=== PATIENT | female | born 1985 | race Caucasian/White ===

== ENCOUNTER 2018-04-23 08:30 | Inpatient (IN) | payer OTHER ==
[~2018-04-23] VITALS: Ht 157.5 cm; Wt 68.0 kg
[~2018-04-23 08:30] MED LIST: LIORESAL 10MG T10 MG PO; POLYTRIM EYE DR10 ML OPH; TRAMADOL50 MG PO
[2018-04-23] MEDS ORDERED: PRENATAL TABLE1 EAC2 PO (08:55)
[2018-04-23 08:59] LABS: ABSOLUTE BASOPHIL COUNT 0 /CUMM (0.0-0.2); ABSOLUTE EOSINOPHIL COUNT 0.1 /CUMM (0.0-0.7); ABSOLUTE GRANULOCYTE CT 7.2 /CUMM (1.4-6.5); ABSOLUTE LYMPH COUNT 1.8 /CUMM (1.2-3.4); ABSOLUTE MONOCYTE COUNT 0.4 /CUMM (0.10-0.60); BASOPHIL % 0.3 % (0.0-2.0); EOSINOPHIL % 0.7 % (0-5); GRANULOCYTE % 76.3 % (42.2-75.2); HEMATOCRIT 38.7 % (37-47); MEAN CORPUSCULAR HGB 31.4 PG (27.0-31.0); MEAN CORPUSCULAR VOLUME 92.4 FL (81.0-99.0); MEAN PLATELET VOLUME 9.6 FL (7.4-10.4); PLATELET COUNT 189 /CUMM (130-400); RBC DISTRIBUTION WIDTH 13.5 % (11.5-14.5); RED BLOOD CELL CT 4.19 /CUMM (4.20-5.40); WHITE BLOOD CELL COUNT 9.5 /CUMM (4.8-10.8)
--- NOTE | 2018-04-23 09:25 | History & Physical ---
General Information and HPI MD Statement: I have seen and personally examined RODRIGUEZ SAMUELS and documented this H&P. Source of Information: patient, old records Exam Limitations: no limitations History of Present Illness: The patient is a 33 year old at 41 weeks and 0 days gestation who presented with a chief complaint of IOL for pedc. No ctx / lof / vb. +FM. GBS neg. AP care uncomplicated. Elevated GCT, nl GTT. 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 No Contractions: rare Infant #1 - FHR Baseline: 130 Category: 1 Estimated Weight: 3400 Presentation: vtx Patient for Induction? Yes Patrick Score Patrick Score Response Value Cervix Position: mid-position 1 Cervix Consistency: soft 2 Cervix Effacement: 30-50% 1 Cervix Dilation: 3-4 cm 2 Cervix Station: -2 1 Total 7 Physical Exam: nad abd soft nt gravid ext nt no ed Labs Blood Type & Rh: AB pos Antibody Screen: neg Hct/Hgb & Platelets #1: 12.5/ 39, 194 Hct/Hgb & Platelets #2: 12.5/ 40.7, 172 Rubella: imm VDRL #1: neg VDRL #2: neg HbsAg: neg HIV #1: neg HIV #2 neg 1 Hr P 3 Hr P/ 107/ 85/ 77 Group B Strep: neg Initial Ultrasound: 08/31/17siup 7+3 Anatomy Ultrasound: 12/06/17 nl manish Ultrasound for EFW: 03/26 36+5 5#15 22% Genetic Testing: cffdna wnl XX msafp wnl CF neg hgb AA Last 24 Hrs of Labs/Rich: Laboratory Tests 04/23/18 0847: CBC w Diff NO MAN DIFF REQ, RBC 4.19 L, MCV 92.4, MCH 31.4 H, MCHC 34.0, RDW 13.5, MPV 9.6, Gran % 76.3 H, Lymphocytes % 18.6 L, Monocytes % 4.1, Eosinophils % 0.7, Basophils % 0.3, Absolute Granulocytes 7.2 H, Absolute Lymphocytes 1.8, Absolute Monocytes 0.4, Absolute Eosinophils 0.1, Absolute Basophils 0 04/23/18 0840: Urine Color YEL, Urine Clarity CLEAR, Urine pH 6.5, Ur Specific Miranda 1.020, Urine Protein NEG, Urine Ketones NEG, Urine Nitrite NEG, Urine Bilirubin NEG, Urine Urobilinogen 0.2, Ur Leukocyte Esterase NEG, Ur Microscopic EXAM NOT REQUIRED, Urine Hemoglobin NEG, Urine Glucose NEG Assessment/Plan Assessment/Plan: 33yo @ 41wks for pedc IOL, GBS neg, and maternal status reassuring -Admit -pitocin -monitoring -ANSVD As Ranked By This Provider Problem List: 1. Core Measures Venous Thromboembolism VTE Risk Factors / No Mechanical VTE Prophylaxis d/t Early Ambulation No VTE Pharm Prophylaxis d/t LowRisk-No Interven Req'd
--- NOTE | 2018-04-23 11:20 | PN- OBGYN ---
Surgical Brief Attending Note Brief Attending Note: pt w/ mild ctx afeb, v/ss fht 130s mod variability +acc no dec toco q 1-5 pit@ 8mu sve 3/70/-2, arom clr a/p p0 41wks pedc iol, on pit, gbs neg, s/p arom, and maternal status reassuring -cont current mgmt
--- NOTE | 2018-04-23 17:07 | Labor & Delivery Summary ---
Delivery Summary Vaginal Delivery: Vaginal: spontaneous Episiotomy/Lacerations: Episiotomy/Lacerations: 2nd deg, b/l labial Type: vaginal and perineal Repair: 3-0 daphne Anesthesia: epidural Placenta: Placenta: spontanteous, normal, 3 vessel Anesthesia: block Baby's Weight: 3165gr Apgars - 1 Min: 9 Apgars - 5 Min: 9 Additional Comments: Pt FD / +2 and pushing w/ epidural. Controlled of live female, apg 05/13, wt 7#. Head del over perineum from PATRICE. Mouth and nose bulb suctioned. Body del w/o difficulty. Baby to mom's chest. Cord clamped and cut. Cord gases sent. 3vc plac del spont intact. Fundus contracted. Vaginal, labial and perineal lacs repaired usual fashion 3-0 daphne. Good hemostasis. Left vaginal wall 3cm x 2cm sized hematoma noted and remained stable in size for 20 min. Pt radhika well. Baby w/ mom. EBL 400cc.
[2018-04-23 17:44] VITALS: BP 106/69
[2018-04-24 08:14] LABS: ABSOLUTE BASOPHIL COUNT 0 /CUMM (0.0-0.2); ABSOLUTE EOSINOPHIL COUNT 0 /CUMM (0.0-0.7); ABSOLUTE GRANULOCYTE CT 10.7 /CUMM (1.4-6.5); ABSOLUTE LYMPH COUNT 1.3 /CUMM (1.2-3.4); ABSOLUTE MONOCYTE COUNT 0.4 /CUMM (0.10-0.60); BASOPHIL % 0.1 % (0.0-2.0); EOSINOPHIL % 0.3 % (0-5); GRANULOCYTE % 85.3 % (42.2-75.2); HEMATOCRIT 37.2 % (37-47); MEAN CORPUSCULAR HGB 31.6 PG (27.0-31.0); MEAN CORPUSCULAR HGB CONC 33.6 G/DL (33.0-37.0); MEAN CORPUSCULAR VOLUME 93.8 FL (81.0-99.0); MEAN PLATELET VOLUME 9.6 FL (7.4-10.4); PLATELET COUNT 157 /CUMM (130-400); RBC DISTRIBUTION WIDTH 13.5 % (11.5-14.5); RED BLOOD CELL CT 3.96 /CUMM (4.20-5.40); WHITE BLOOD CELL COUNT 12.6 /CUMM (4.8-10.8)
--- NOTE | 2018-04-24 10:41 | PN- OBGYN ---
Surgical Brief Attending Note Brief Attending Note: PPD 1 C/o perineal soreness, but otherwise OK and very happy. Lochia mild rubra. Occ.cramping. Motrin helped. +void, tolerating POs. Ambulating. afebrile, VS normal. Lips - pink, moist Neck - supple Breasts - no mass, soft Abd - soft, NT Fundus, firm, NT Perineum - dry, intact Extr - benign PP H/H - A: stable s/p going well P: routine care plan discharge in am 04/25
[2018-04-25] MEDS ORDERED: IBUPROFEN800 M1 PO (10:17)
--- NOTE | 2018-04-25 10:17 | PN- Post Delivery/GYN ---
Subjective Subjective: feeling well Review of Systems Constitutional: Denies: chills, fever. EENTM: Denies: blurred vision, double vision, visual changes. Cardiovascular: Denies: chest pain, edema. Respiratory: Denies: cough. Gastrointestinal: Denies: abdominal pain, diarrhea, nausea, vomiting. Neurological/Psychological: Denies: depressed. Objective Last 24 Hrs of Vital Signs/I&O vss Physical Exam General Appearance Alert, Oriented X3, Cooperative, No Acute Distress Cardiovascular Regular Rate Lungs Clear to Auscultation Abdomen Normal Bowel Sounds, Soft, No Tenderness, fundus firm Extremities No Edema Pelvic (FEMALE) lochia serosanganous Assessment/Plan Assessment/Plan PPD #2 vss afebrile plan d/c home
--- NOTE | 2018-04-25 10:33 | PN- Post Delivery/GYN ---
See Addendum Subjective Subjective: feeling well Review of Systems Constitutional: Denies: chills, fever. EENTM: Denies: blurred vision, double vision, visual changes. Cardiovascular: Denies: chest pain. Respiratory: Denies: short of breath. Gastrointestinal: Denies: abdominal pain, diarrhea, nausea, vomiting. Genitourinary: Denies: dysuria. Neurological/Psychological: Denies: anxiety, depressed. Objective Last 24 Hrs of Vital Signs/I&O vss Physical Exam General Appearance Alert, Oriented X3, Cooperative, No Acute Distress Cardiovascular Regular Rate Lungs Clear to Auscultation Abdomen Normal Bowel Sounds, Soft, No Tenderness, incision clean and dry Neurological Normal Gait, Normal Speech, Strength at 5/5 X4 Ext, Normal Tone Pelvic (FEMALE) lochia serosanganous Current Medications: Current Medications Sig/Kimberlee Start time Last Medication Dose Route Stop Time Status Admin Acetaminophen 650 MG Q4P PRN 04/23 1715 AC PO Butorphanol Tartrate 1 MG Q4P PRN 04/23 0915 AC IV Butorphanol Tartrate 1 MG Q4P PRN 04/23 0915 AC IM Docusate Sodium 100 MG BID PRN 04/23 1715 AC PO Ibuprofen 800 MG Q6P PRN 04/23 1715 AC 04/25 PO 0619 Lactated Ringer's 1,000 ML Q8H 04/23 0845 AC 04/23 IV 1304 Oxytocin 30 UNITS PER PROTOCL 04/23 0915 AC 04/23 Lactated Ringer's 500 ML IV 0911 Assessment/Plan Assessment/Plan POD 3# vss afebrile plan d/c home Problem List: 1. Attending MD Review Statement Attending Statement Attending MD Statement: examined this patient, discussed with family, discussed with nursing
== END 2018-04-25 10:50 | DRG 775 ==
LOC: GNO 08:30
PROVIDERS: Obstetrics & Gynecology
PROC: 0KQM0ZZ Repair Perineum Muscle, Open Approach (ICD-10-PCS; principal; 2018-04-23)
PROC: 10E0XZZ Delivery of Products of Conception, External Approach (ICD-10-PCS; principal; 2018-04-23)
DX: O70.1 Second degree perineal laceration during delivery (principal); Z37.0 Single live birth; Z3A.41 41 weeks gestation of pregnancy
CPT/HCPCS: GNOS; 36415; 81003; 87086; J7120